=== PATIENT | female | born 1985 | race Asian ===

== ENCOUNTER 2017-12-21 18:57 | Emergency (ER) | payer OTHER ==
[~2017-12-21] VITALS: Ht 152.4 cm; Wt 54.5 kg
[2017-12-21 19:05] VITALS: BP 136/72; TEMP 99.5
[2017-12-21 20:36] LABS: BASO % 0.2 % (0.0-2.0); GRAN # 3.5 (1.4-6.5); GRAN % 73.4 % (42.2-75.2); HEMATOCRIT 40.1 % (37.0-47.0); HEMOGLOBIN 13.4 g/dl (12.5-16.0); LYMPH % 21.2 % (20.0-51.0); MEAN CELL VOLUME 93 fl (80.0-100.0); MEAN CORPUSCULAR HEMOGLOBIN 31 pg (27.0-31.0); MEAN CORPUSCULAR HGB CONC 33 g/dl (33.0-37.0); MEAN PLATELET VOLUME 11.7 fl (7.4-10.4); MONO # 0.2 (0.1-0.6); PLATELET COUNT 147 K/mm3 (130-400); REDCELL DISTRIBUTION WIDTH-CV 13.1 % (11.5-14.5)
[2017-12-21 20:50] LABS: ALBUMIN 4.9 gm/dL (3.5-5.0); BILIRUBIN,TOTAL 0.6 mg/dL (0.0-1.0); CALCIUM 8.9 mg/dL (8.4-10.2); CREATININE, serum 0.55 mg/dL (0.52-1.25); TOTAL PROTEIN 8.3 gm/dL (6.4-8.2)
[2017-12-21 20:53] LABS: INFLUENZA A POSITIVE; INFLUENZA B NEGATIVE
[2017-12-21] MEDS ORDERED: ZOFRAN ODT4 MG PO (21:07)
[2017-12-21 21:40] VITALS: PULSE 91
== END 2017-12-21 21:40 | disposition home or self-care (01) ==
LOC: COL.ER 18:57
PROVIDERS: Physician Assistant
DX: J11.1 Influenza due to unidentified influenza virus with other respiratory manifestations (principal); R19.7 Diarrhea, unspecified; R11.10 Vomiting, unspecified
CPT/HCPCS: J1885; J2405; J7030

== ENCOUNTER 2017-12-25 19:27 | Emergency (ER) | payer OTHER ==
[~2017-12-25] VITALS: Ht 152.4 cm; Wt 49.1 kg
[~2017-12-25 19:27] MED LIST: ZOFRAN ODT4 MG PO
[2017-12-25 19:29] VITALS: TEMP 100.6
[2017-12-25] MEDS ORDERED: PHENERGAN 25 TA25 MG PO (20:53)
[2017-12-25] MEDS ORDERED: IBU600 MG PO (20:53)
[2017-12-25 21:28] LABS: ALBUMIN 4.3 gm/dL (3.5-5.0); BASO % 0.2 % (0.0-2.0); BILIRUBIN,TOTAL 0.5 mg/dL (0.0-1.0); C-REACTIVE PROTEIN 6.4 mg/dL (0.0-0.9); CALCIUM 8.7 mg/dL (8.4-10.2); CREATININE, serum 0.58 mg/dL (0.52-1.25); GRAN # 8.8 (1.4-6.5); GRAN % 74.4 % (42.2-75.2); HEMOGLOBIN 12.2 g/dl (12.5-16.0); LYMPH # 2.3 (1.2-3.4); LYMPH % 19.3 % (20.0-51.0); MEAN CELL VOLUME 90 fl (80.0-100.0); MEAN CORPUSCULAR HEMOGLOBIN 31 pg (27.0-31.0); MEAN CORPUSCULAR HGB CONC 35 g/dl (33.0-37.0); MEAN PLATELET VOLUME 10.9 fl (7.4-10.4); MONO # 0.7 (0.1-0.6); MONO % 5.9 % (1.7-9.3); PLATELET COUNT 175 K/mm3 (130-400); POTASSIUM 3.3 mmol/L (3.4-5.0); RED BLOOD COUNT 3.91 M/mm3 (4.10-5.30); REDCELL DISTRIBUTION WIDTH-CV 12.4 % (11.5-14.5); TOTAL PROTEIN 7.5 gm/dL (6.4-8.2)
[2017-12-25 21:29] LABS: HEMATOCRIT 35.1 % (37.0-47.0)
[2017-12-25] MEDS ORDERED: DOXYCYCLINE 10100 MG PO (22:35)
[2017-12-25] MEDS ORDERED: ZOFRAN 4MG T4 MG/TAB PO (22:35)
[2017-12-25 22:52] VITALS: BP 105/61; PULSE 90
== END 2017-12-25 22:53 | disposition home or self-care (01) ==
LOC: COL.ER 19:27
PROVIDERS: Emergency Medicine
DX: J18.1 Lobar pneumonia, unspecified organism (principal); J11.1 Influenza due to unidentified influenza virus with other respiratory manifestations; Z79.1 Long term (current) use of non-steroidal anti-inflammatories (NSAID)
CPT/HCPCS: J7030